=== PATIENT | female | born 1965 | race Caucasian/White ===

== ENCOUNTER 2017-07-29 11:55 | Emergency (ER) | payer OTHER ==
[~2017-07-29] VITALS: Ht 165.1 cm; Wt 65.9 kg
[~2017-07-29 11:55] MED LIST: Z.0.NO CURRENT MEDS
[2017-07-29 12:06] VITALS: BP 130/70; PULSE 68; RESP 18; TEMP 97.9; O2SAT 99
[2017-07-29] MEDS ORDERED: PEPP90CA PO (13:12)
[2017-07-29] MEDS ORDERED: AMOX250C3 PO (13:12)
[2017-07-29] MEDS ORDERED: SODIUM CHLORIDE 0.9% FLUSH 10 ML FLUSH IVF PRN (13:45)
[2017-07-29] MEDS ORDERED: KETOROLAC TROMETHAMINE 30 MG/ML (IVP) VIAL IV PUSH ONE (13:45)
[2017-07-29 14:18] LABS: AUTOMATED NEUTROPHIL # 4.2 TH/MM3 (1.8-7.7); BASOPHIL % 0.4 % (0.0-2.0); EOSINOPHIL # 0.1 TH/MM3 (0-0.4); EOSINOPHIL % 1.9 % (0.0-4.0); HEMATOCRIT 42.7 % (35.0-46.0); HEMOGLOBIN 14.6 GM/DL (11.6-15.3); LYMPH % 21.5 % (9.0-44.0); LYMPHOCYTE # 1.3 TH/MM3 (1.0-4.8); MEAN CELL VOLUME 88.6 FL (80.0-100.0); MEAN CORPUSCULAR HEMOGLOBIN 30.4 PG (27.0-34.0); MEAN CORPUSCULAR HGB CONC 34.3 % (32.0-36.0); MEAN PLATELET VOLUME 8.5 FL (7.0-11.0); MONO % 7.3 % (0.0-8.0); MONOCYTE # 0.4 TH/MM3 (0-0.9); NEUT % 68.9 % (16.0-70.0); PLATELET COUNT 208 TH/MM3 (150-450); RED BLOOD COUNT 4.83 MIL/MM3 (4.00-5.30); RED CELL DISTRIBUTION WIDTH 12.5 % (11.6-17.2); WHITE BLOOD COUNT 6.1 TH/MM3 (4.0-11.0)
[2017-07-29 14:29] LABS: BICARBONATE 30.1 MEQ/L (21.0-32.0); CALCIUM 9.4 MG/DL (8.5-10.1); CREATININE 0.67 MG/DL (0.50-1.00)
--- NOTE | 2017-07-29 14:30 | PD ---
Data Data Last Documented VS Vital Signs Date Time Temp Pulse Resp B/P (MAP) Pulse Ox O2 Delivery O2 Flow Rate FiO2 07/29/17 12:06 97.9 68 18 130/70 (90) 99 Orders Orders Electrocardiogram (07/29/17 13:32) Basic Metabolic Panel (Bmp) (07/29/17 13:32) Complete Blood Count With Diff (07/29/17 13:32) Iv Access Insert/Monitor (07/29/17 13:32) Sodium Chloride 0.9% Flush (Ns Flush) (07/29/17 13:45) Labs Laboratory Tests Test 07/29/17 14:00 White Blood Count 6.1 TH/MM3 Red Blood Count 4.83 MIL/MM3 Hemoglobin 14.6 GM/DL Hematocrit 42.7 % Mean Corpuscular Volume 88.6 FL Mean Corpuscular Hemoglobin 30.4 PG Mean Corpuscular Hemoglobin Concent 34.3 % Red Cell Distribution Width 12.5 % Platelet Count 208 TH/MM3 Mean Platelet Volume 8.5 FL Neutrophils (%) (Auto) 68.9 % Lymphocytes (%) (Auto) 21.5 % Monocytes (%) (Auto) 7.3 % Eosinophils (%) (Auto) 1.9 % Basophils (%) (Auto) 0.4 % Neutrophils # (Auto) 4.2 TH/MM3 Lymphocytes # (Auto) 1.3 TH/MM3 Monocytes # (Auto) 0.4 TH/MM3 Eosinophils # (Auto) 0.1 TH/MM3 Basophils # (Auto) 0.0 TH/MM3 CBC Comment DIFF FINAL Differential Comment MDM Supervised Visit with TERRI: Yes Narrative Course I, Dr. Rodgers, have reviewed the advance practice practitioner's documentation and am in agreement, met with the patient face to face, made the diagnosis, and the medical decision making was done by me. *My assessment and Findings: I examined this patient. There are no objective findings. Her TMs look normal. There is no clinical suspicion or objective evidence of meningitis or mastoiditis. Her mastoids are nontender without erythema. She does describe a room spinning vertigo. I suspect she has an inner ear balance center problem, possibly labyrinthitis or benign positional vertigo. She is currently on antibiotics although I do not see much indication for that CBC is normal Looks clinically stable for outpatient follow-up Can try some meclizine Diagnosis Primary Impression: Vertigo Additional Impression: Acute pain of left ear Thai Rodgers MD Jul 29, 2017 14:30
--- NOTE | 2017-07-29 16:01 | PD ---
HPI Chief Complaint: ENT Complaint Time Seen by Provider: 13:07 Travel History International Travel<30 days: No Contact w/Intl Traveler<30days: No Traveled to known affect area: No History of Present Illness HPI 51-year-old female presents to the emergency department with complaint of worsening of left ear pain and thinking she has mastoiditis. She was seen in urgent care on Saturday and was told she had an inner ear infection and is taking amoxicillin. She woke up this morning her left ear pain was worse. She also states it feels like she has fluid of both of her ears. Reports fever of 101.0 earlier today. Pain radiates to her head and down her neck. She denies nasal congestion, cough, sore throat, difficulty swallowing, unusual drooling. Says her pain comes in waves. Rates pain 8/10 at its worst. Pain now is 5/10. Worse with swallowing, coughing. No known relieving factors. Has not taken any medications or try any treatments to alleviate her symptoms, other than the amoxicillin. No primary care provider. Allergies to pain medications and Flexeril. History of COPD. Has no other medical complaints. No other modifying factors or associated signs and symptoms. PFSH Past Medical History COPD: Yes Diminished Hearing: No Gastrointestinal Disorders: Yes (IBS) Tetanus Vaccination: < 5 Years Influenza Vaccination: No ?: Not Menopausal: Yes Past Surgical History Surgical History: No Previous Surgery Social History Alcohol Use: No Tobacco Use: No Substance Use: No Allergies-Medications (Allergen,Severity, Reaction): Coded Allergies: diclofenac (Unverified Adverse Reaction, Intermediate, UPSET FEELING, 07/29) etodolac (Unverified Adverse Reaction, Intermediate, UPSET FEELING, ) flurbiprofen (Unverified Adverse Reaction, Intermediate, UPSET FEELING, ) hydrocodone (Unverified Adverse Reaction, Intermediate, VOMITTING, 07/29/17 ) indomethacin (Unverified Adverse Reaction, Intermediate, UPSET FEELING, ) ketoprofen (Unverified Adverse Reaction, Intermediate, UPSET FEELING, 07/29) ketorolac (Unverified Adverse Reaction, Intermediate, UPSET FEELING, ) naproxen (Unverified Adverse Reaction, Intermediate, UPSET FEELING, ) oxaprozin (Unverified Adverse Reaction, Intermediate, UPSET FEELING, ) Reported Meds & Prescriptions Reported Meds & Active Scripts Active Reported Amoxicillin 250 Mg Cap 250 Mg PO BID Ibgard (Peppermint Oil) 90 Mg Capdr...er PO DAILY Review of Systems Except as stated in HPI: all other systems reviewed are Neg Physical Exam Narrative GENERAL: Well-nourished, well-developed female patient, in no acute distress; afebrile, nontoxic-appearing SKIN: Warm and dry. No rash. HEAD: Atraumatic. Normocephalic. EYES: Pupils equal and round. No scleral icterus. No injection or drainage. ENT: Mucosa pink and moist. No erythema or exudates. No uvular edema. No uvular , palatal, or tonsillar deviation. Airway patent. EARS: Bilateral pinnae and external canals appear within normal limits. Bilateral tympanic membranes without erythema, dullness or perforation. Tympanic membranes appear normal bilaterally. NECK: Moving freely. Trachea midline. No anterior, posterior, preauricular or auricular lymphadenopathy. CARDIOVASCULAR: Regular rate. RESPIRATORY: No accessory muscle use. GASTROINTESTINAL: Rounded. MUSCULOSKELETAL: No obvious deformities. No clubbing. No cyanosis. No edema. NEUROLOGICAL: Awake and alert. Oriented 3. No obvious cranial nerve deficits. Motor grossly within normal limits. Normal speech. Moves all extremities. 5/5 strength to all extremities. PSYCHIATRIC: Appropriate mood and affect; insight and judgment normal. Data Data Last Documented VS Vital Signs Date Time Temp Pulse Resp B/P (MAP) Pulse Ox O2 Delivery O2 Flow Rate FiO2 07/29/17 16:30 07/29/17 16:11 61 07/29/17 12:06 97.9 18 99 Orders Orders Electrocardiogram (07/29/17 13:32) Basic Metabolic Panel (Bmp) (07/29/17 13:32) Complete Blood Count With Diff (07/29/17 13:32) Iv Access Insert/Monitor (07/29/17 13:32) Sodium Chloride 0.9% Flush (Ns Flush) (07/29/17 13:45) Ed Discharge Order (07/29/17 16:01) Labs Laboratory Tests Test 07/29/17 14:00 White Blood Count 6.1 TH/MM3 Red Blood Count 4.83 MIL/MM3 Hemoglobin 14.6 GM/DL Hematocrit 42.7 % Mean Corpuscular Volume 88.6 FL Mean Corpuscular Hemoglobin 30.4 PG Mean Corpuscular Hemoglobin Concent 34.3 % Red Cell Distribution Width 12.5 % Platelet Count 208 TH/MM3 Mean Platelet Volume 8.5 FL Neutrophils (%) (Auto) 68.9 % Lymphocytes (%) (Auto) 21.5 % Monocytes (%) (Auto) 7.3 % Eosinophils (%) (Auto) 1.9 % Basophils (%) (Auto) 0.4 % Neutrophils # (Auto) 4.2 TH/MM3 Lymphocytes # (Auto) 1.3 TH/MM3 Monocytes # (Auto) 0.4 TH/MM3 Eosinophils # (Auto) 0.1 TH/MM3 Basophils # (Auto) 0.0 TH/MM3 CBC Comment DIFF FINAL Differential Comment Blood Urea Nitrogen 10 MG/DL Creatinine 0.67 MG/DL Random Glucose 91 MG/DL Calcium Level 9.4 MG/DL Sodium Level 143 MEQ/L Potassium Level 5.1 MEQ/L Chloride Level 108 MEQ/L Carbon Dioxide Level 30.1 MEQ/L Anion Gap 5 MEQ/L Estimat Glomerular Filtration Rate 93 ML/MIN MDM Medical Decision Making Medical Screen Exam Complete: Yes Emergency Medical Condition: Yes Medical Record Reviewed: Yes Differential Diagnosis Otitis media, otitis externa, ear pain, vertigo, arrhythmia, electrolyte imbalance, shingles Narrative Course 51-year-old female with left ear pain. I do not see any signs of rash, otitis media, otitis externa, mastoiditis. The patient is afebrile and nontoxic- appearing. She is currently taking amoxicillin for diagnosis of left otitis media. She is complaining of dizziness and feeling faint. Dr. Rodgers evaluated patient and agreed with my plan of care. CBC, BMP, EKG ordered. 1600: CBC, BMP unremarkable. EKG was normal sinus rhythm; without ST elevation or depression; reviewed by Dr. Rodgers. Discussed lab findings and EKG findings with the patient. Instructed patient to follow-up with ENT or neurologist if symptoms persist. Instructed patient to follow up with primary care provider. Patient verbalizes understanding and agreement with treatment plan. Patient is medically cleared and stable for discharge. Discussed reasons to return to the emergency department. Patient agrees with treatment plan. The patients vital signs are stable and the patient is stable for outpatient follow-up and treatment. Patient discharged home, stable and in no acute distress. Diagnosis Primary Impression: Vertigo Additional Impression: Acute pain of left ear Referrals: [facility] Primary Care Physician Patient Instructions: Dizziness (ED), General Instructions, Vertigo (ED) Additional Instructions: Ibuprofen or Tylenol as directed and as needed for pain [id number] meclizine as directed and as needed for dizziness Follow-up with primary care provider Follow-up with ear nose throat specialist as needed Return to the emergency department immediately with worsening of symptoms Med/Other Pt SpecificInfo: No Change to Meds, No Meds Exist/No RX given Disposition: 01 DISCHARGE HOME Condition: Stable Alena Arredondo Jul 29, 2017 16:01
[2017-07-29 16:11] VITALS: BP 148/93; PULSE 61
--- NOTE | 2017-07-29 20:44 | EKG ---
Date Performed: 07/29/2017 Time Performed: 13:56:39 PTAGE: 51 years EKG: Sinus rhythm POSSIBLE RIGHT VENTRICULAR CONDUCTION DELAY BORDERLINE ECG NO PREVIOUS TRACING DOCTOR: Rainer Lang Interpretating Date/Time 07/29/2017 20:43:02
== END 2017-07-29 16:31 | disposition home or self-care (01) ==
LOC: NEPD 11:55
DX: R42 Dizziness and giddiness (principal); H92.02 Otalgia, left ear; R94.31 Abnormal electrocardiogram [ECG] [EKG]; J44.9 Chronic obstructive pulmonary disease, unspecified; K58.9 Irritable bowel syndrome, unspecified
CPT/HCPCS: 80048; 85025; 93005; 99284